=== PATIENT | female | born 1940 | race Asian ===

== ENCOUNTER → 2016-12-25 | Outpatient (CLI) | payer MEDICARE, OTHER | END | disposition home or self-care (01) | LOC: RADPV 09:13 | PROVIDERS: ATTEND Legal Medicine | DX: M51.36 Other intervertebral disc degeneration, lumbar region (principal); M51.37 Other intervertebral disc degeneration, lumbosacral region; M43.16 Spondylolisthesis, lumbar region; M47.816 Spondylosis without myelopathy or radiculopathy, lumbar region; M54.41 Lumbago with sciatica, right side | CPT/HCPCS: 72100 ==

== ENCOUNTER → 2017-03-27 | Outpatient (CLI) | payer MEDICARE, OTHER | END | disposition home or self-care (01) | LOC: RADPV 11:05 | PROVIDERS: ATTEND Legal Medicine | DX: R91.8 Other nonspecific abnormal finding of lung field (principal); J18.9 Pneumonia, unspecified organism; I70.0 Atherosclerosis of aorta | CPT/HCPCS: 71046 ==

== ENCOUNTER → 2017-07-06 | Outpatient (CLI) | payer MEDICARE, OTHER | END | disposition home or self-care (01) | LOC: RADPV 09:15 | PROVIDERS: ATTEND Internal Medicine | DX: I70.0 Atherosclerosis of aorta (principal); R91.8 Other nonspecific abnormal finding of lung field | CPT/HCPCS: 71046 ==

== ENCOUNTER 2017-11-24 06:59 | Emergency (ER) | payer MEDICARE, OTHER ==
[~2017-11-24] VITALS: Ht 157.5 cm; Wt 52.3 kg
[2017-11-24] MEDS ORDERED: ACET-784 PO (07:05)
[2017-11-24] MEDS ORDERED: HYDR25TA PO (07:05)
[2017-11-24] MEDS ORDERED: TRAM50TA4 PO (07:05)
[2017-11-24] MEDS ORDERED: GABA-531 PO ×2 (07:05)
[2017-11-24] MEDS ORDERED: TraMADol HCL 50 MG TABLET PO ONE (07:45)
[2017-11-24] MEDS ORDERED: LIDOCAINE 1% 10 ML VIAL INJ ONE (07:45)
[2017-11-24 11:59] VITALS: BP 126/74
== END 2017-11-24 12:20 | disposition home or self-care (01) ==
LOC: EMS 06:59
DX: S52.571A Other intraarticular fracture of lower end of right radius, initial encounter for closed fracture (principal); M19.90 Unspecified osteoarthritis, unspecified site; M25.511 Pain in right shoulder; M25.551 Pain in right hip; M25.561 Pain in right knee; I10 Essential (primary) hypertension; Z85.118 Personal history of other malignant neoplasm of bronchus and lung; Z88.2 Allergy status to sulfonamides; W01.0XXA Fall on same level from slipping, tripping and stumbling without subsequent striking against object, initial encounter; Y93.89 Activity, other specified; Y92.89 Other specified places as the place of occurrence of the external cause; Y99.8 Other external cause status
CPT/HCPCS: 25605; 70450; 72125; 72170; 73030; 73060; 73100; 73110; 73562; 99284; J3490

== ENCOUNTER 2017-11-25 17:28 | Emergency (ER) | payer MEDICARE, OTHER ==
[~2017-11-25] VITALS: Ht 157.5 cm; Wt 50.0 kg
[~2017-11-25 17:28] MED LIST: ACET-784 PO; GABA-531 PO; HYDR25TA PO; TRAM50TA4 PO
[2017-11-25 21:06] VITALS: BP 144/80
== END 2017-11-25 21:10 | disposition home or self-care (01) ==
LOC: EMS 17:30
DX: S52.571A Other intraarticular fracture of lower end of right radius, initial encounter for closed fracture (principal); I10 Essential (primary) hypertension; Z85.118 Personal history of other malignant neoplasm of bronchus and lung; Z88.2 Allergy status to sulfonamides; W19.XXXA Unspecified fall, initial encounter; Y93.89 Activity, other specified; Y92.89 Other specified places as the place of occurrence of the external cause; Y99.8 Other external cause status
CPT/HCPCS: 99284